=== PATIENT | female | born 1990 ===

== ENCOUNTER 2018-03-03 12:14 | Inpatient (IN) | payer OTHER ==
[~2018-03-03] VITALS: Ht 175.3 cm; Wt 87.1 kg
[2018-03-09] MEDS ORDERED: PRENATAL TABLE1 EAC1 PO (06:39)
== END 2018-03-11 12:18 | disposition home or self-care (01) | DRG 807 ==
LOC: LDR 03-09 06:18 → OB/GYN 03-09 14:13
PROVIDERS: ADMIT Obstetrics & Gynecology
PROC: 10E0XZZ Delivery of Products of Conception, External Approach (ICD-10-PCS; principal; 2018-03-09)
PROC: 4A1HXCZ Monitoring of Products of Conception, Cardiac Rate, External Approach (ICD-10-PCS; 2018-03-09)
PROC: 0UQGXZZ Repair Vagina, External Approach (ICD-10-PCS; 2018-03-09)
DX: O71.4 Obstetric high vaginal laceration alone (principal); Z37.0 Single live birth; Z3A.39 39 weeks gestation of pregnancy